=== PATIENT | female | born 1970 | race Two or more races ===

== ENCOUNTER 2019-04-23 19:01 | Emergency (ER) | payer OTHER ==
[2019-04-23 19:24] VITALS: TEMP 98.2; BMI 26.9
[2019-04-23 19:36] LABS: BASO % 0.6 % (0-2.0); MEAN PLT VOLUME 11.3 fl (7.5-11.1)
[2019-04-23 19:39] LABS: EOS % 1.9 % (0-4.5); HEMOGLOBIN 12.5 GM/dl (10.7-15.3); LYMPH % 38.9 % (8-40); MCH 28.2 pg (25.7-33.7); MEAN CELL VOLUME 85.5 fl (80-96); MONO % 7.7 % (3.8-10.2); NEUT % 50.9 % (42.8-82.8); PLATELET COUNT 210 K/MM3 (134-434); RBC 4.44 M/mm3 (3.60-5.2); WHITE BLOOD COUNT 6.6 K/mm3 (4.0-10.8)
[2019-04-23 19:43] LABS: ALBUMIN 4.2 g/dl (3.4-5.0); BILIRUBIN,TOTAL 0.6 mg/dl (0.2-1); CALCIUM 9.3 mg/dl (8.5-10); CREATININE 0.8 mg/dl (0.55-1.3); POTASSIUM 4.4 mmol/L (3.5-5.1)
--- NOTE | 2019-04-23 22:03 | PDOC ---
Documentation entered by Britton Samayoa SCRIBE, acting as scribe for Ab Jiang MD. Ab Jiang MD: This documentation has been prepared by the Yao ivey Aiswarya, SCRIBE, under my direction and personally reviewed by me in its entirety. I confirm that the documentation accurately reflects all work, treatment, procedures, and medical decision making performed by me. History of Present Illness - General Chief Complaint: Lightheaded Stated Complaint: ROOM SPINNING - History of Present Illness Initial Comments: 04/23/19 19:43 The patient is a 48 year old female, with no significant PMH, who presents to the emergency department with SOB and chest pain that began last night. The patient states she woke up with intermittent chest pain located to the right anterior chest wall and neck pain. She states she came back from [facility] and felt a sudden onset of SOB. She endorsed associated symptoms of chest pain, fatigue, and vertigo. Denies any long travels or sitting for a long period of time.Denies fever, chills, nausea, vomiting, diarrhea and constipation. Denies any numbness or tingling. Denes any neurological deficit. Family history: Father- heart surgery Mother- cholesterol Brother- Cholesterol Allergies: NKDA Past surgical history: None reported Social history: None reported PCP:Cheryl Quick Past History - Past Medical History Allergies/Adverse Reactions: Allergies Allergy/AdvReac Type Severity Reaction Status Date / Time No Known Allergies Allergy Verified 04/23/19 19:10 Home Medications: Ambulatory Orders NK [No Known Home Medication] 04/23/19 Review of Systems - Review of Systems Able to Perform ROS?: Yes Comments:: 04/23/19 19:44 GENERAL/CONSTITUTIONAL: No fever or chills. CARDIOVASCULAR:+Shortness of breath and chest pain. RESPIRATORY: No cough, wheezing, or hemoptysis. MUSCULOSKELETAL: +Neck pain. No joint or muscle swelling or pain. or back pain. SKIN: No rash NEUROLOGIC: +vertigo. No headache, loss of consciousness, or change in strength/sensation. ENDOCRINE: No increased thirst. No abnormal weight change. HEMATOLOGIC/LYMPHATIC: No anemia, easy bleeding, or history of blood clots. ALLERGIC/IMMUNOLOGIC: No hives or skin allergy. *Physical Exam - Vital Signs Last Vital Signs Temp Pulse Resp BP Pulse Ox 98.2 F 74 11 117/82 100 04/23/19 19:09 10 23:00 04/23/19 23:00 04/23/19 23:00 04/23/19 23:00 - Physical Exam Comments: 04/23/19 19:45 GENERAL: Awake, alert, and fully oriented, in no acute distress HEAD: No signs of trauma NECK: Normal ROM, supple, no lymphadenopathy, JVD, or masses LUNGS: Breath sounds equal, clear to auscultation bilaterally. No wheezes, and no crackles HEART: Regular rate and rhythm, normal S1 and S2, no murmurs, rubs or gallops EXTREMITIES: Normal range of motion, no edema. No clubbing or cyanosis. No cords, erythema, or tenderness NEUROLOGICAL: Cranial nerves II through XII grossly intact. Normal speech, normal gait SKIN: Warm, Dry, normal turgor, no rashes or lesions noted. Heart Score/ECG Review - ECG Impressions Comment:: 04/23/19 20:47 sinus rhythm 89 normal axis normal interval normal ischemic finding ED Treatment Course - LABORATORY CBC & Chemistry Diagram: 04/23/19 19:15 04/23/19 19:15 - ADDITIONAL ORDERS Additional order review: Laboratory Results 04/23/19 04/23/19 04/23/19 23:00 19:15 19:15 D-Dimer < 215 Sodium 141 Potassium 4.4 Chloride 110 H Carbon Dioxide 23 Anion Gap 8 BUN 13.0 Creatinine 0.8 Est GFR (CKD-EPI)AfAm 102.47 Est GFR (CKD-EPI)NonAf 88.41 Random Glucose 120 H Calcium 9.3 Total Bilirubin 0.6 AST 19 ALT 13 Alkaline Phosphatase 67 Creatine Kinase 72 Troponin I < 0.03 Total Protein 7.0 Albumin 4.2 04/23/19 19:15 D-Dimer Sodium Potassium Chloride Carbon Dioxide Anion Gap BUN Creatinine Est GFR (CKD-EPI)AfAm Est GFR (CKD-EPI)NonAf Random Glucose Calcium Total Bilirubin AST ALT Alkaline Phosphatase Creatine Kinase Troponin I < 0.03 Total Protein Albumin 04/23/19 19:15 RBC 4.44 MCV 85.5 MCHC 33.0 RDW 13.0 MPV 11.3 H Neutrophils % 50.9 Lymphocytes % 38.9 Monocytes % 7.7 Eosinophils % 1.9 Basophils % 0.6 - RADIOLOGY Radiology Studies Ordered: Category Date Time Status CHEST PA & LAT [RAD] Stat Radiology 04/23/19 19:23 Taken Medical Decision Making - Medical Decision Making 04/24/19 06:34 CXR: RODRIGUEZ, as read by me, referrd to radiology ofr defintive review a/p ? etiology of symptoms tropn - x2 with nl ekg; heart 2 ; can fu outpt ? PE--no identifiable rfs, dimer - observed x 5 hours with resolution of symptoms Discharge - Discharge Information Problems reviewed: Yes Clinical Impression/Diagnosis: Dizziness Condition: Fair Disposition: HOME - Follow up/Referral Referrals: Cheryl Quick MD [Primary Care Provider] - Call tomorrow - Patient Discharge Instructions Additional Instructions: Please follow-up with your primary care doctor as soon as possible - Post Discharge Activity
[2019-04-23 23:07] VITALS: BP 117/82; PULSE 74
--- NOTE | 2019-04-24 12:13 | EKG ---
Test Reason : Blood Pressure : / mmHG Vent. Rate : 096 BPM Atrial Rate : 096 BPM P-R Int : 108 ms QRS Dur : 060 ms QT Int : 320 ms P-R-T Axes : 074 073 069 degrees QTc Int : 404 ms POOR DATA QUALITY, INTERPRETATION MAY BE ADVERSELY AFFECTED SINUS RHYTHM WITH SHORT MI NONSPECIFIC ST ABNORMALITY ABNORMAL ECG NO PREVIOUS ECGS AVAILABLE Confirmed by Elton Rasheed ([id number]) on 04/24/2019 12:13:18 PM Referred By: Confirmed By:Elton Rasheed
== END 2019-04-23 23:51 | disposition home or self-care (01) ==
LOC: SUPCPDRO 19:01 → FER 19:01
DX: R42 Dizziness and giddiness (principal)
CPT/HCPCS: 36415; 71046-TC-FY; 80053; 82550; 84484; 85025; 85379; 93005; 99285-25

== ENCOUNTER 2021-02-21 23:26 | Emergency (ER) | payer OTHER ==
[2021-02-21 23:34] VITALS: BP 128/81; PULSE 66; TEMP 97.8; BMI 26.9
[2021-02-21] MEDS ORDERED: KETOROLAC TROMETHAMINE 60 MG/2 ML VIAL IM ONE (23:38)
[2021-02-21] MEDS ORDERED: CYCLOBENZAPRINE HCL 10 MG TABLET (FP) PO ONE (23:38)
[2021-02-21] MEDS ORDERED: predniSONE 20 MG TABLET (UD) PO ONE (23:38)
[2021-02-21] MEDS ORDERED: KETOROLAC TROMETHAMINE 60 MG/2 ML VIAL ONE (23:41)
[2021-02-21] MEDS ORDERED: CYCLOBENZAPRINE HCL 10 MG TABLET (FP) ONE (23:41)
[2021-02-21] MEDS ORDERED: predniSONE 20 MG TABLET (UD) ONE (23:42)
== END 2021-02-21 23:51 | disposition home or self-care (01) ==
LOC: FER 23:26
PROC: 3E0233Z Introduction of Anti-inflammatory into Muscle, Percutaneous Approach (ICD-10-PCS; principal; 2021-02-21)
DX: M25.511 Pain in right shoulder (principal)
CPT/HCPCS: 99284-25

== ENCOUNTER 2021-07-10 09:45 | Emergency (ER) | payer OTHER ==
[2021-07-10] MEDS ORDERED: DEXAMETHASONE SOD PHOSPHATE 10 MG/1 ML VIAL IVPUSH ONE (10:09)
[2021-07-10] MEDS ORDERED: KETOROLAC TROMETHAMINE 30 MG/1 ML VIAL IVPUSH ONE (10:09)
[2021-07-10] MEDS ORDERED: DEXAMETHASONE SOD PHOSPHATE 10 MG/1 ML VIAL ONE (10:11)
[2021-07-10] MEDS ORDERED: KETOROLAC TROMETHAMINE 30 MG/1 ML VIAL ONE (10:11)
[2021-07-10] MEDS ORDERED: SODIUM CHLORIDE 1,000 ML IV STA (10:19)
[2021-07-10 10:20] VITALS: BP 137/71; PULSE 87; TEMP 99; BMI 29.0
[2021-07-10 11:01] LABS: ALBUMIN 4.2 g/dl (3.4-5.0); BILIRUBIN,TOTAL 0.6 mg/dl (0.2-1); CALCIUM 9.1 mg/dl (8.5-10); CREATININE 0.7 mg/dl (0.55-1.3); TOT PROT 7.1 g/dl (6.4-8.2)
[2021-07-10 14:20] LABS: BASO % 0.2 % (0-2.0); EOS % 2.6 % (0-4.5); HEMATOCRIT 36.6 % (32.4-45.2); HEMOGLOBIN 12.3 GM/dL (10.7-15.3); MCH 28.7 pg (25.7-33.7); MCHC 33.6 g/dl (32.0-36.0); MEAN CELL VOLUME 85.4 fl (80-96); MEAN PLT VOLUME 10.8 fl (7.5-11.1); MONO % 10.6 % (3.8-10.2); NEUT % 69.6 % (42.8-82.8); PLATELET COUNT 145 10^3/uL (134-434); RBC 4.28 M/mm3 (3.60-5.2); RDW 13.7 % (11.6-15.6); WHITE BLOOD COUNT 4.5 K/mm3 (4.0-10.0)
== END 2021-07-10 15:13 | disposition home or self-care (01) ==
LOC: FER 09:45
PROC: 3E033GC Introduction of Other Therapeutic Substance into Peripheral Vein, Percutaneous Approach (ICD-10-PCS; principal; 2021-07-10)
PROC: 3E0333Z Introduction of Anti-inflammatory into Peripheral Vein, Percutaneous Approach (ICD-10-PCS; 2021-07-10)
PROC: 3E0337Z Introduction of Electrolytic and Water Balance Substance into Peripheral Vein, Percutaneous Approach (ICD-10-PCS; 2021-07-10)
DX: U07.1 COVID-19 (principal); J02.9 Acute pharyngitis, unspecified; R05.1 Acute cough
CPT/HCPCS: 36415; 70491-TC; 80053; 85025; 87804; 87807; 99285-25; C9803; J1100; U0003; U0005

== ENCOUNTER 2022-07-22 13:12 | Emergency (ER) | payer OTHER ==
[2022-07-22 13:25] VITALS: BP 122/84; PULSE 72; RESP 16; TEMP 98.2; BMI 26.6
[2022-07-22] MEDS ORDERED: ASPIRIN 81 MG CHEWABLE TABLETS PO ONE (14:58)
[2022-07-22 15:19] LABS: HEMATOCRIT 37.8 % (32.4-45.2); MCH 29.5 pg (25.7-33.7); MCHC 34.4 g/dl (32.0-36.0); MEAN CELL VOLUME 85.7 fl (80-96); MEAN PLT VOLUME 10.3 fl (7.5-11.1); PLATELET COUNT 184.3 10^3/uL (134-434); RBC 4.41 10^6/uL (3.60-5.2); RDW 14.2 % (11.6-15.6); WHITE BLOOD COUNT 5.6 10^3/uL (4.0-10.8)
[2022-07-22] MEDS ORDERED: ASPIRIN 81 MG CHEWABLE TABLETS ONE (15:41)
[2022-07-22 15:44] LABS: CALCIUM 9.2 mg/dl (8.5-10); CREATININE 0.8 mg/dl (0.55-1.3)
[2022-07-22 17:10] LABS: PLATELET ESTIMATE ADEQUATE
== END 2022-07-22 16:54 | disposition home or self-care (01) ==
LOC: FER 13:12
DX: R07.9 Chest pain, unspecified (principal); M79.602 Pain in left arm
CPT/HCPCS: 36415; 71046-TC-FY; 80048; 84484; 85027; 93005; 99285-25